=== PATIENT | male | born 1995 | race Caucasian/White ===

== ENCOUNTER 2017-03-22 12:29 | Emergency (ER) | payer OTHER ==
[~2017-03-22] VITALS: Ht 175.3 cm; Wt 70.3 kg
[~2017-03-22 12:29] MED LIST: CYCLOBENZAPRINE10 MG PO; IBUPROFEN600 MG PO; OMEPRAZOLE20 MG PO; PEPTO-BISM262 MG/15 PO
--- OUTSIDE RECORDS SUMMARY | 2017-03-22 13:12 | XMS ---
Demographics + + + | Address | [address] [place] [address] | | | [place] [address] | + + + | Preferred Language | Unknown | + + + | Marital Status | Unknown | + + + | Confucianism Affiliation | Unknown | + + + | Race | Unknown | + + + | Ethnic Group | Unknown | + + + Author + + + | Author | [facility] | + + + | Organization | [facility] | + + + | Address | [address] | | | [place] [address] | + + + | Phone | | + + + Care Team Providers + + + + | Care Pet Store Merchandiser Name | Role | Phone | + + + + Unavailable | Unavailable | + + + + PROBLEMS + + + + + + + + | Type | Condition | ICD9-CM | [id number] | Onset | Condition | SNOMED | | | | Code | Code | Dates | Status | Code | + + + + + + + + | Problem | Acid | K21.9 | | | Active | 320663235 | | | reflux | | | | | | + + + + + + + + | Problem | Low back | | M54.5 | | Active | 828134212 | | | pain | | | | | | + + + + + + + + | Problem | Stomach | R10.9 | | | Active | 58239211 | | | pain | | | | | | + + + + + + + + | Assessment | Laceration | S61.212A | | 23 July, | Active | 0110942 | | | of right | | | 2017 | | | | | middle | | | | | | | | finger | | | | | | + + + + + + + + | Problem | Nausea and | | R11.2 | | Active | 78510683 | | | vomiting | | | | | | + + + + + + + + | Problem | Pain of | R10.10 | | | Active | 09707050 | | | upper | | | | | | | | abdomen | | | | | | + + + + + + + + | Problem | Peptic | K27.9 | | | Active | 98990203 | | | ulcer | | | | | | + + + + + + + + | Problem | Neck pain | M54.2 | | | Active | 91839199 | + + + + + + + + | Problem | Nosebleed | R04.0 | | | Active | 78638365 | + + + + + + + + | Problem | Left | | M25.512 | | Active | 282007738 | | | shoulder | | | | | | | | pain | | | | | | + + + + + + + + ALLERGIES + + + + +--------+ | Substance | Reaction | Event Type | Date | Status | + + + + +--------+ | Oxymetazoline | hives | Drug Allergy | July, | Active | | HCl | | | | | + + + + +--------+ SOCIAL HISTORY No smoking Hx information available PLAN OF CARE VITAL SIGNS + + + + | Height | 69 in | 2016-07-23 | + + + + | Weight | 164.0 lbs | 2016-07-23 | + + + + | BMI | 24.22 kg/m2 | 2016-07-23 | + + + + | Temperature | 98.7 degrees Fahrenheit | 2016-07-23 | + + + + | Heart Rate | 65 /min | 2016-07-23 | + + + + | Blood pressure systolic | 113 mm Hg | 2016-07-23 | + + + + | Blood pressure diastolic | 71 mm Hg | 2016-07-23 | + + + + MEDICATIONS + + + + +--------+ + +--------+ | Medicati | Instruct | Dosage | Frequenc | Start | End Date | Duration | Status | | on | ions | | y | Date | | | | + + + + +--------+ + +--------+ | Omeprazo | Orally | 1 tab(s) | 12h | | | 30 | Active | | le 20 mg | bid | | | | | | | + + + + +--------+ + +--------+ RESULTS No Results PROCEDURES + + + + + | Procedure | Date Ordered | Related Diagnosis | Body Site | + + + + + | Est Level III | July 23, 2016 | | | | Intermediate | | | | + + + + + | REPAIR SUPERFICIAL | July 23, 2016 | | | | WOUND(S) <2.5 CM | | | | + + + + + | IMMUNIZATION ADMIN | July 23, 2016 | | | + + + + + | TD VACCINE NO PRSRV | July 23, 2016 | | | | > 7, IM | | | | + + + + + IMMUNIZATIONS +---------+ + + + | Vaccine | Route | Administration Date | Status | +---------+ + + + | TD | IM Intramuscular | July 23, 2016 | Administered | +---------+ + + +"
--- OUTSIDE RECORDS SUMMARY | 2017-03-22 13:12 | XMS ---
Demographics + + + | Address | [address] [place] [address] | | | [place] [address] | + + + | Preferred Language | Unknown | + + + | Marital Status | Unknown | + + + | Congregational Affiliation | Unknown | + + + | Race | Unknown | + + + | Ethnic Group | Unknown | + + + Author + + + | Author | [facility] | + + + | Organization | [facility] | + + + | Address | [address] | | | [place] [address] | + + + | Phone | | + + + Care Team Providers + + + + | Care Certified Physician Assistant Name | Role | Phone | + + + + Unavailable | Unavailable | + + + + PROBLEMS + + + + + + + + | Type | Condition | ICD9-CM | [id number] | Onset | Condition | SNOMED | | | | Code | Code | Dates | Status | Code | + + + + + + + + | Problem | Stomach | R10.9 | | | Active | 14767777 | | | pain | | | | | | + + + + + + + + | Problem | Neck pain | M54.2 | | | Active | 06974496 | + + + + + + + + | Problem | Low back | | M54.5 | | Active | 674366375 | | | pain | | | | | | + + + + + + + + | Assessment | Visit for | Z48.02 | | 02 August, | Active | 44536667 | | | suture | | | 2016 | | | | | removal | | | | | | + + + + + + + + | Problem | Acid | K21.9 | | | Active | 315548496 | | | reflux | | | | | | + + + + + + + + | Problem | Visit for | Z48.02 | | | Active | 20982743 | | | suture | | | | | | | | removal | | | | | | + + + + + + + + | Problem | Nausea and | | R11.2 | | Active | 64094478 | | | vomiting | | | | | | + + + + + + + + | Problem | Left | | M25.512 | | Active | 961601978 | | | shoulder | | | | | | | | pain | | | | | | + + + + + + + + | Problem | Peptic | K27.9 | | | Active | 08209461 | | | ulcer | | | | | | + + + + + + + + | Problem | Pain of | R10.10 | | | Active | 84751079 | | | upper | | | | | | | | abdomen | | | | | | + + + + + + + + | Problem | Nosebleed | R04.0 | | | Active | 91926291 | + + + + + + [...] + | Height | 69 in | 2016-08-02 | + + + + | Weight | 161.6 lbs | 2016-08-02 | + + + + | BMI | 23.86 kg/m2 | 2016-08-02 | + + + + | Temperature | 97.8 degrees Fahrenheit | 2016-08-02 | + + + + | Heart Rate | 64 /min | 2016-08-02 | + + + + | Blood pressure systolic | 102 mm Hg | 2016-08-02 | + + + + | Blood pressure diastolic | 66 mm Hg | 2016-08-02 | + + + + MEDICATIONS + [...] | + + + + + | Doctor no charge/no | August 02, 2016 | | | | charge for visit | | | | + + + + + IMMUNIZATIONS No Known Immunizations"
[2017-03-22] MEDS ORDERED: ZOFRAN ODT4 MG PO (14:34)
== END 2017-03-22 14:53 | disposition home or self-care (01) ==
LOC: ED 12:29
DX: K29.70 Gastritis, unspecified, without bleeding (principal); F32.9 Major depressive disorder, single episode, unspecified; F90.9 Attention-deficit hyperactivity disorder, unspecified type; Z79.899 Other long term (current) drug therapy
CPT/HCPCS: 80053; 85025; 85610; 85730; 86850; 86900; 86901; 96361; 96374; 99284; J2405; J7030

== ENCOUNTER 2018-01-28 13:41 | Emergency (ER) | payer OTHER ==
[~2018-01-28] VITALS: Ht 175.3 cm; Wt 70.3 kg
--- OUTSIDE RECORDS SUMMARY | ~2018-01-28 | XMS ---
Demographics + + + | Address | [address] [place] [address] | | | [place] [address] | + + + | Preferred Language | Unknown | + + + | Marital Status | Unknown | + + + | Mu-Ism Affiliation | Unknown | + + + | Race | Unknown | + + + | Ethnic Group | Unknown | + + + Author + + + | Author | [facility] | + + + | Organization | [facility] | + + + | Address | [address] | | | [place] [address] | + + + | Phone | | + + + Care Team Providers + + + + | Care Pole Frame Construction Worker Name | Role | Phone | + + + + Unavailable | Unavailable | + + + + PROBLEMS + + + + + + + + | Type | Condition | ICD9-CM | [id number] | Onset | Condition | SNOMED | | | | Code | Code | Dates | Status | Code | + + + + + + + + | Problem | Acid | K21.9 | | | Active | 685561345 | | | reflux | | | | | | + + + + + + + + | Problem | Low back | | M54.5 | | Active | 923551624 | | | pain | | | | | | + + + + + + + + | Problem | Stomach | R10.9 | | | Active | 13878264 | | | pain | | | | | | + + + + + + + + | Assessment | H. pylori | A04.8 | | 31 Mar, | Active | 507796339 | | | infection | | | 2017 | | | + + + + + + + + | Assessment | GERD | | K21.9 | May, | Active | 559118187 | | | (gastroeso | | | 2016 | | | | | phageal | | | | | | | | reflux | | | | | | | | disease) | | | | | | + + + + + + + + | Problem | Nausea and | | R11.2 | | Active | 47696388 | | | vomiting | | | | | | + + + + + + + + | Problem | Pain of | R10.10 | | | Active | 78769348 | | | upper | | | | | | | | abdomen | | | | | | + + + + + + + + | Problem | Peptic | K27.9 | | | Active | 26772566 | | | ulcer | | | | | | + + + + + + + + | Problem | Neck pain | M54.2 | | | Active | 64399666 | + + + + + + + + | Problem | Nosebleed | R04.0 | | | Active | 70251407 | + + + + + + + + | Problem | Left | | M25.512 | | Active | 554373384 | | | shoulder | | | | | | | | pain | | | | | | + + + + + + + + ALLERGIES + + + + +--------+ | Substance | Reaction | Event Type | Date | Status | + + + + +--------+ | Oxymetazoline | hives | Drug Allergy | May, | Active | | HCl | | | | | + + + + +--------+ SOCIAL HISTORY No smoking Hx information available PLAN OF CARE VITAL SIGNS + + + + | Height | 69 in | 2016-06-22 | + + + + | Weight | 164.2 lbs | 2016-06-22 | + + + + | BMI | 24.25 kg/m2 | 2016-06-22 | + + + + | Heart Rate | 69 /min | 2016-06-22 | + + + + | Blood pressure systolic | 116 mm Hg | 2016-06-22 | + + + + | Blood pressure diastolic | 72 mm Hg | 2016-06-22 | + + + + MEDICATIONS + [...] + + + + | Est Level II | June 22, 2016 | | | | Limited | | | | + + + + + IMMUNIZATIONS No Known Immunizations"
--- OUTSIDE RECORDS SUMMARY | ~2018-01-28 | XMS | Clinical Summary ---
Demographics + + + | Address | [address] | | | [place] [address] | + + + | Home Phone | | + + + | Preferred Language | Unknown | + + + | Marital Status | Single | + + + | Muslim Affiliation | Unknown | + + + | Race | White | + + + | Ethnic Group | Not or | + + + Author + + + | Author | [facility] | + + + | Organization | [facility] | + + + | Address | Unknown | + + + | Phone | Unavailable | + + + Support + + +---------+ + | Name | Relationship | Address | Phone | + + +---------+ + | NONE,NONE | ECON | Unknown | Unavailable | + + +---------+ + | Gretchen Cruz | ECON | Unknown | Unavailable | + + +---------+ + Care Team Providers + +------+ + | Care Speech Language Therapist Name | Role | Phone | + +------+ + | Miles Aburto DO | PP | | + +------+ + Source Comments [facility] and [facility] & [facility] Allergies + + + + + + | Active Allergy | Reactions | Severity | Noted | Comments | | | | | Date | | + + + + + + | Adhesive Bandage | Contact Dermatitis | Medium | 12/25/19 | | | | | | 07 | | + + + + + + Current Medications + + +-------+---------+------+------+-------+ | Prescription | Sig. | Disp. | Refills | Star | End | Statu | | | | | | t | Date | s | | | | | | Date | | | + + +-------+---------+------+------+-------+ | Atomoxetine HCl | 1 po qd | | | | | Activ | | (STRATTERA) 40 mg | | | | | | e | | Oral Capsule | | | | | | | + + +-------+---------+------+------+-------+ | risperidone | take 1 tablet by | | | | | Activ | | (RISPERDAL) 0.5 mg | mouth daily | | | | | e | | Oral Tablet | | | | | | | + + +-------+---------+------+------+-------+ Active Problems + + + | Problem | Noted Date | + + + | ADHD (attention deficit hyperactivity disorder) | 12/24/2006 | + + + + + | Overview: ICD10 | + + + + + | Short stature | 06/14/2006 | + + + Social History + +-------+ +--------+------+ | Tobacco Use | Types | Packs/Day | Years | Date | | | | | Used | | + +-------+ +--------+------+ | Never Assessed | | | | | + +-------+ +--------+------+ + + + | Sex Assigned at | Date Recorded | | | | + + + | Not on file | | + + + Last Filed Vital Signs + + + + | Vital Sign | Reading | Time Taken | + + + + | Blood Pressure | 119/67 | 10/01/2008 9:08 AM PDT | + + + + | Pulse | 125 | 10/01/2008 9:08 AM PDT | + + + + | Temperature | - | - | + + + + | Respiratory Rate | - | - | + + + + | Oxygen Saturation | - | - | + + + + | Inhaled Oxygen | - | - | | Concentration | | | + + + + | Weight | 39.6 kg (87 lb 4.8 | 10/01/2008 9:08 AM PDT | | | oz) | | + + + + | Height | 146.3 cm (4' 9.6") | 10/01/2008 9:08 AM PDT | + + + + | Body Mass Index | 18.5 | 10/01/2008 9:08 AM PDT | + + + + Plan of Treatment + + + + + | Health Maintenance | Due Date | Last Done | Comments | + + + + + | Influenza (Flu) | | | | | vaccination (#1) | 8 | | | + + + + + Results Not on filefrom Last 3 Months
--- OUTSIDE RECORDS SUMMARY | ~2018-01-28 | XMS | Clinical Summary ---
Demographics + + + | Address | [address] | | | [place] [address] | + + + | Home Phone | | + + + | Preferred Language | Unknown | + + + | Marital Status | Single | + + + | Alevism Affiliation | Unknown | + + + [...] Team Providers + +------+ + | Care Peach Grower Name | Role | Phone | + +------+ + | Miles Aburto DO | PP | | + +------+ + Source Comments [facility] and [facility] & [facility] Allergies + + + + + [...]
[~2018-01-28 13:41] MED LIST changes: +ZOFRAN ODT4 MG PO
== END 2018-01-28 15:09 | disposition home or self-care (01) ==
LOC: ED 13:41
DX: N50.812 Left testicular pain (principal); F90.9 Attention-deficit hyperactivity disorder, unspecified type; F32.9 Major depressive disorder, single episode, unspecified; F41.9 Anxiety disorder, unspecified; Z88.8 Allergy status to other drugs, medicaments and biological substances
CPT/HCPCS: 76870; 81001; 99284

== ENCOUNTER 2018-04-08 23:21 | Emergency (ER) | payer OTHER ==
[2018-04-09] MEDS ORDERED: OMEPRAZOLE20 MG PO (21:37)
[2018-04-09] MEDS ORDERED: DOXYCYCLINE HY100 MG PO (22:17)
[2018-04-09] MEDS ORDERED: TRAMADOL HCL50 MG PO (22:17)
== END 2018-04-08 23:51 | disposition left against medical advice (07) ==
LOC: ED 23:21
DX: N50.812 Left testicular pain (principal)

== ENCOUNTER 2018-04-09 08:13 | Emergency (ER) | payer OTHER ==
[~2018-04-09] VITALS: Ht 175.3 cm; Wt 70.3 kg
--- OUTSIDE RECORDS SUMMARY | 2018-04-09 08:20 | XMS ---
PreManage Notification: [place] Security Policy Change Clerk Events No recent Security Events currently on file CRITERIA MET - [facility] - 2 Visits in 30 Days CARE PROVIDERS SANGEETHA GOMEZ Hospitalist 01/29/2018-Current PHONE: Unknown Katiana has no Care Guidelines for this patient. Care History Medical/Surgical 01/29/2018 [facility] - CHW RECEIVED ED PHYSICIAN CONSULT- PATIENT NEEDS TO GET INTO TO SEE DR GONZALES. - CHW EMAILED [facility] OF [facility] TO NOTIFY DR GONZALES AND NOTIFY DR GOMEZ. 01/29/2018 [facility] - Patient is currently established with [facility]. If patient is seen in the ED during business hours. Please contact CHWs at [facility]. Care Recommendation: This patient has had 5 or more Emergency Department visits in the last 12 months.\T\nbsp; Patient requires education on the scope and purpose of the ED as an acute care provider not a Primary Care Provider and should not be utilized for chronic conditions.\T\nbsp; These are guidelines and the provider should exercise clinical judgment when providing care. E.D. VISIT COUNT (12 MO.) [address] [facility] TOTAL 4 NOTE: Visits indicate total known visits. ED/UCC VISIT TRACKING (12 MO.) 04/09/2018 08:15 [facility] [place] TYPE: Emergency COMPLAINT: - LEFT TESTICLE PAIN/ NO INJURY 04/08/2018 23:21 [facility] [place] TYPE: Emergency COMPLAINT: - L TESTICULAR PAIN,NON INJURY 02/10/2018 20:28 [facility] [place] TYPE: Emergency COMPLAINT: - ABD PAIN DIAGNOSES: - Allergy status to other drugs, medicaments and biological substances status - Anxiety disorder, unspecified - Unspecified abdominal pain - Attention-deficit hyperactivity disorder, unspecified type - Major depressive disorder, single episode, unspecified - Noninfective gastroenteritis and colitis, unspecified - Other mcc (current) drug therapy 01/28/2018 13:42 [facility] [place] TYPE: Emergency COMPLAINT: - TESTICULAR PAIN,NON INJURY DIAGNOSES: - Attention-deficit hyperactivity disorder, unspecified type - Anxiety disorder, unspecified - Major depressive disorder, single episode, unspecified - Allergy status to other drugs, medicaments and biological substances status - Left testicular pain INPATIENT VISIT TRACKING (12 MO.) No inpatient visits to display in this time frame [email or web address]
[2018-04-09] MEDS ORDERED: OMEPRAZOLE20 MG PO (21:37)
[2018-04-09] MEDS ORDERED: TRAMADOL HCL50 MG PO (22:17)
[2018-04-09] MEDS ORDERED: DOXYCYCLINE HY100 MG PO (22:17)
== END 2018-04-09 08:45 | disposition home or self-care (01) ==
LOC: ED 08:13
DX: N50.812 Left testicular pain (principal); F90.9 Attention-deficit hyperactivity disorder, unspecified type; F32.9 Major depressive disorder, single episode, unspecified; Z88.8 Allergy status to other drugs, medicaments and biological substances; Z79.899 Other long term (current) drug therapy
CPT/HCPCS: 99283

== ENCOUNTER 2018-04-09 21:29 | Emergency (ER) | payer OTHER ==
[~2018-04-09] VITALS: Ht 175.3 cm; Wt 70.3 kg
--- OUTSIDE RECORDS SUMMARY | 2018-04-09 21:34 | XMS ---
PreManage Notification: [place] Security Offshore Diver Events No recent Security Events currently on file CRITERIA MET - [facility] - 2 Visits in 30 Days CARE PROVIDERS SANGEETHA GOMEZ Hospitalist 01/29/2018-Current PHONE: Unknown Katiana has no Care Guidelines for this patient. Care History Medical/Surgical 01/29/2018 [facility] - CHW RECEIVED ED PHYSICIAN CONSULT- PATIENT NEEDS TO GET INTO TO SEE DR GONZALES. - CHW EMAILED [facility] OF [facility] TO NOTIFY DR GONZALES AND NOTIFY DR GOMEZ. 01/29/2018 [facility] - Patient is currently established with [facility]. If patient is seen in the ED during business hours. Please contact CHWs at [facility]. Care Recommendation: This patient has had 5 [...] providing care. E.D. VISIT COUNT (12 MO.) [address] [facility] TOTAL 5 NOTE: Visits indicate total known visits. ED/UCC VISIT TRACKING (12 MO.) 04/09/2018 21:30 [facility] [place] TYPE: Emergency COMPLAINT: - L TESTICULAR PAIN,NON INJURY 04/09/2018 08:15 [facility] [place] TYPE: Emergency [...] Noninfective gastroenteritis and colitis, unspecified - Other custodial (current) drug therapy 01/28/2018 13:42 [facility] [place] TYPE: Emergency COMPLAINT: - TESTICULAR PAIN,NON INJURY DIAGNOSES: - Attention-deficit hyperactivity disorder, unspecified type - Anxiety disorder, unspecified - Major depressive disorder, single episode, unspecified - Allergy status to other drugs, medicaments and biological substances status - Left testicular pain INPATIENT VISIT TRACKING (12 MO.) No inpatient visits to display in this time frame [email or web address]
[2018-04-09] MEDS ORDERED: OMEPRAZOLE20 MG PO (21:37)
[2018-04-09] MEDS ORDERED: DOXYCYCLINE HY100 MG PO (22:17)
[2018-04-09] MEDS ORDERED: TRAMADOL HCL50 MG PO (22:17)
== END 2018-04-09 22:40 | disposition home or self-care (01) ==
LOC: ED 21:29
DX: N45.1 Epididymitis (principal); F90.9 Attention-deficit hyperactivity disorder, unspecified type; F32.9 Major depressive disorder, single episode, unspecified; Z88.8 Allergy status to other drugs, medicaments and biological substances; Z79.899 Other long term (current) drug therapy
CPT/HCPCS: 99283

== ENCOUNTER 2018-04-12 11:49 | Emergency (ER) | payer OTHER ==
[~2018-04-12] VITALS: Ht 175.3 cm; Wt 70.3 kg
[~2018-04-12 11:49] MED LIST changes: +DOXYCYCLINE HY100 MG PO; +TRAMADOL HCL50 MG PO
--- OUTSIDE RECORDS SUMMARY | 2018-04-12 11:54 | XMS ---
PreManage Notification: [place] Security Transcription Specialist Events No recent Security Events currently on file CRITERIA MET - 6 ED Visits in 6 Months - [facility] - 2 Visits in 30 Days CARE PROVIDERS Ehsan Stauffer [facility] 04/10/2018-Current PHONE: Unknown SANGEETHA GOMEZ [facility] 01/29/2018-Current PHONE: Unknown Katiana has no Care Guidelines for this patient. Care History Medical/Surgical 04/10/2018 [facility] - PATIENT NO SHOWED TO APT WITH DR GONZALES ON 02/26/18. - PATIENT NO SHOWED TO APT TO ESTABLISH CARE WITH DR STAUFFER ON 03/28/18. - PATIENT HAS AN APT WITH DR STAUFFER TO ESTABLISH CARE ON 04/16/18 @ 3:30PM. 01/29/2018 [facility] - CHW RECEIVED ED PHYSICIAN CONSULT- PATIENT NEEDS TO GET INTO TO SEE DR GONZALES. - W EMAILED [facility] OF [facility] TO NOTIFY DR GONZALES AND NOTIFY DR GOMEZ. 01/29/2018 [facility] - Patient is currently established with [facility]. If patient is seen in the ED during business hours. Please contact CHWs at [facility]. Care Recommendation: This patient has had 5 [...] providing care. E.D. VISIT COUNT (12 MO.) 6 [facility] TOTAL 6 NOTE: Visits indicate total known visits. ED/UCC VISIT TRACKING (12 MO.) 04/12/2018 11:49 [facility] [place] TYPE: Emergency COMPLAINT: - CHEST PAIN/SOB 04/09/2018 21:30 [facility] [place] TYPE: Emergency COMPLAINT: - L TESTICULAR PAIN,NON INJURY DIAGNOSES: - Other retirement (current) drug therapy - Left testicular pain - Allergy status to other drugs, medicaments and biological substances status - Major depressive disorder, single episode, unspecified - Epididymitis - Attention-deficit hyperactivity disorder, unspecified type 04/09/2018 08:15 [facility] [place] TYPE: Emergency COMPLAINT: - LEFT TESTICLE PAIN/ NO INJURY DIAGNOSES: - Attention-deficit hyperactivity disorder, unspecified type - Left testicular pain - Other intermediate card tender (current) drug therapy - Allergy status to other drugs, medicaments and biological substances status - Major depressive disorder, single episode, unspecified 04/08/2018 23:21 [facility] [place] TYPE: Emergency COMPLAINT: - L TESTICULAR PAIN,NON INJURY DIAGNOSES: - Left testicular pain 02/10/2018 20:28 [facility] [place] TYPE: Emergency COMPLAINT: - ABD PAIN DIAGNOSES: - Allergy status to other drugs, medicaments and biological substances status - Anxiety disorder, unspecified - Unspecified abdominal pain - Attention-deficit hyperactivity disorder, unspecified type - Major depressive disorder, single episode, unspecified - Noninfective gastroenteritis and colitis, unspecified - Other intermediate card tender (current) drug therapy 01/28/2018 13:42 [facility] [place] TYPE: Emergency COMPLAINT: - TESTICULAR PAIN,NON INJURY DIAGNOSES: - Attention-deficit hyperactivity disorder, unspecified type - Anxiety disorder, unspecified - Major depressive disorder, single episode, unspecified - Allergy status to other drugs, medicaments and biological substances status - Left testicular pain INPATIENT VISIT TRACKING (12 MO.) No inpatient visits to display in this time frame [id number]
--- NOTE | 2018-04-13 11:49 | EKG ---
[facility] [address] [facility] [place], [place] [address] Signed Sinus rhythm with marked sinus arrhythmia Otherwise normal ECG When compared with ECG of 03-JUL-2016 20:04, Nonspecific T wave abnormality no longer evident in Lateral leads Confirmed by KARLENE SUE DO ([id number]) on 04/13/2018 11:49:37 AM Electronically Signed By: KARLENE SUE DO 04/13/18 1149 PATIENT NAME: NE OSBORNE JR Electrocardiogram DATE OF : [birth year] PHYSICIAN: KARLENE SUE DO REPORT #: [id number] REPORT IS CONFIDENTIAL AND NOT TO BE RELEASED WITHOUT AUTHORIZATION
== END 2018-04-12 14:04 | disposition home or self-care (01) ==
LOC: ED 11:49
DX: R07.9 Chest pain, unspecified (principal); F90.9 Attention-deficit hyperactivity disorder, unspecified type; F32.9 Major depressive disorder, single episode, unspecified; F41.0 Panic disorder [episodic paroxysmal anxiety]; Z87.891 Personal history of nicotine dependence; Z88.8 Allergy status to other drugs, medicaments and biological substances; Z79.899 Other long term (current) drug therapy
CPT/HCPCS: 93005; 93010; 99285-25